=== PATIENT | male | born 1980 | race Caucasian/White ===

== ENCOUNTER 2020-11-06 17:29 | Inpatient (IN) | payer OTHER ==
[~2020-11-06] VITALS: Ht 172.7 cm; Wt 80.7 kg
[~2020-11-06 17:29] MED LIST: ATARAX,VISTARIL50 MG PO; CARBIDOPA/LEVOD1 TA1 PO; DEPAKOTE500 MG PO; DICYCLOMINE HCL20 MG PO; HYDR12.5C PO; LOPERAMIDE HCL2 MG PO; METHOCARBAMOL750 M1 PO; NICOTINE PATCH1 EAC2 TD; ONDANSETRON HYDR4 M1 PO; ROBAXIN750 MG PO; ROPINIROLE HYD0.5 MG PO; SEROQUEL300 MG PO; SINEMET 25-100M1 TAB PO; VISTARIL50 MG PO
[2020-11-06 17:30] VITALS: BP 140/99
[2020-11-06] MEDS ORDERED: 'CLONIDINE0.1 MG PO (18:39)
[2020-11-06] MEDS ORDERED: AMLODIPINE BESYL5 MG PO (18:40)
[2020-11-06] MEDS ORDERED: LAMOTRIGINE25 M1 PO (18:41)
[2020-11-06] MEDS ORDERED: HYDROCHLOROTHIA25 M1 PO (18:41)
[2020-11-06] MEDS ORDERED: LOSARTAN POTAS100 M1 PO (18:42)
[2020-11-06 20:00] VITALS: BP 154/77
[2020-11-06 20:00] LABS: BILIRUBIN Negative (Negative); BLOOD Negative (Negative); CLARITY Clear (Clear); COLOR Yellow (Yellow); GLUCOSE Negative (Negative); KETONE Negative (Negative); LEUKO ESTERASE Negative (Negative); NITRITE Negative (Negative); SPECIFIC GRAVITY 1.025 (1.001-1.030); UROBILINOGEN 0.2 E.U./dl (0.0-1.0)
[2020-11-06 20:07] LABS: URINE AMPHETAMINES > 1000 (1000ng/ml); URINE BARBITURATES < 200 (200ng/ml); URINE BENZODIAZEPINES < 200 (200ng/ml); URINE CANNABINOIDS (THC) < 50 (50ng/ml); URINE COCAINE < 300 (300ng/ml); URINE METHADONE < 300 (300ng/ml); URINE OPIATES < 300 (300ng/ml); URINE PHENCYCLIDINE < 25 (25ng/ml)
[2020-11-06 20:12] LABS: BACTERIA TRACE; EPITHELIAL CELLS 0-2; RBC 0-2 rbc/hpf (0-2)
[2020-11-06 20:28] LABS: BASO % 0.5 % (0.0-1.0); EOS # 0.1 10*3/uL (0.0-0.4); EOS % 1.8 % (1.0-4.0); HEMATOCRIT 39.3 % (42.0-52.0); LYMPH # 2.3 10*3/uL (1.3-4.4); LYMPH % 28.8 % (27.0-41.0); MEAN CELL VOLUME 85.6 fl (80.0-94.0); MEAN CORPUSCULAR HGB 30.7 pg (27.0-31.0); MEAN CORPUSCULAR HGB CONC 35.9 g/dl (33.0-37.0); MEAN PLATELET VOLUME 9.8 fl (9.6-12.3); MONO # 0.6 10*3/uL (0.1-1.0); MONO % 7.2 % (3.0-9.0); NEUT # 4.9 10*3/uL (2.3-7.9); NEUT % 61.6 % (47.0-73.0); PLATELET COUNT AUTOMATED 339 10*3/uL (130-400); RED BLOOD COUNT 4.59 10*6/uL (4.50-5.90); RED CELL DISTRI WIDTH 11.3 % (0-14.5)
[2020-11-06 20:45] LABS: ALBUMIN 4.2 gm/dl (3.1-4.5); ALKALINE PHOSPHATASE 94 U/L (45-117); BUN 25 mg/dl (7-24); CHLORIDE 101 mmol/L (98-107); CREATININE 0.96 mg/dL (0.70-1.30); SGOT/AST 46 IU/L (3-35); SGPT/ALT 60 U/L (12-78); SODIUM 137 mmol/L (136-145); TOTAL PROTEIN 8.4 gm/dL (6.4-8.2)
[2020-11-06 20:48] LABS: ETHYL ALCOHOL < 3.0 mg/dl (<3)
[2020-11-07] VITALS: BP 129/66
[2020-11-07 08:00] VITALS: BP 110/76
[2020-11-07 12:00] VITALS: BP 134/72
[2020-11-07 16:00] VITALS: BP 115/57
[2020-11-07 20:00] VITALS: BP 141/48
[2020-11-08] VITALS: BP 120/56
[2020-11-08 08:00] VITALS: BP 116/72
[2020-11-08 12:00] VITALS: BP 114/86
[2020-11-08 16:00] VITALS: BP 120/59
[2020-11-08 20:00] VITALS: BP 129/65
[2020-11-09] VITALS: BP 126/65
[2020-11-09 08:00] VITALS: BP 136/69
[2020-11-09 12:00] VITALS: BP 149/80
[2020-11-09 16:00] VITALS: BP 150/78
[2020-11-09 17:30] VITALS: BP 150/81
[2020-11-09 20:00] VITALS: BP 133/73
[2020-11-10] VITALS: BP 135/86
[2020-11-10 08:00] VITALS: BP 143/74
[2020-11-10] MEDS ORDERED: ZOFRAN 4 MG ED2 TAB PO (08:56)
[2020-11-10] MEDS ORDERED: NATURE'S BLEND F1 MG PO (08:56)
[2020-11-10] MEDS ORDERED: DICYCLOMINE HCL20 MG PO (08:56)
[2020-11-10] MEDS ORDERED: VITAMIN B-1100 M1 PO (08:56)
[2020-11-10] MEDS ORDERED: 'CLONIDINE0.1 MG PO (09:02)
[2020-11-10] MEDS ORDERED: AMLODIPINE BESYL5 MG PO (09:03)
[2020-11-10] MEDS ORDERED: LOSARTAN POTAS100 M1 PO (09:03)
[2020-11-10] MEDS ORDERED: LAMOTRIGINE25 M1 PO (09:05)
[2020-11-10] MEDS ORDERED: LAMICTAL25 MG PO (09:06)
[2020-11-10] MEDS ORDERED: HYDROCHLOROTHIA25 M1 PO (09:07)
== END 2020-11-10 10:26 | disposition home or self-care (01) | DRG 773 ==
LOC: 4E 17:29
PROVIDERS: Internal Medicine; ADMIT Internal Medicine; ATTEND Internal Medicine
DX: F11.23 Opioid dependence with withdrawal (principal); F15.10 Other stimulant abuse, uncomplicated; M79.10 Myalgia, unspecified site; F31.9 Bipolar disorder, unspecified; B19.20 Unspecified viral hepatitis C without hepatic coma; I10 Essential (primary) hypertension; R09.81 Nasal congestion; F41.9 Anxiety disorder, unspecified; F17.229 Nicotine dependence, chewing tobacco, with unspecified nicotine-induced disorders; Z71.6 Tobacco abuse counseling; Z79.899 Other long term (current) drug therapy

== ENCOUNTER 2021-03-16 13:24 | Inpatient (IN) | payer OTHER ==
[~2021-03-16 13:24] MED LIST changes: +'CLONIDINE0.1 MG PO; +AMLODIPINE BESYL5 MG PO; +HYDROCHLOROTHIA25 M1 PO; +LAMICTAL25 MG PO; +LAMOTRIGINE25 M1 PO; +LOSARTAN POTAS100 M1 PO; +NATURE'S BLEND F1 MG PO; +VITAMIN B-1100 M1 PO; +ZOFRAN 4 MG ED2 TAB PO
[2021-03-16 13:30] VITALS: BP 145/94
[2021-03-16 14:45] LABS: BILIRUBIN Negative (Negative); BLOOD Negative (Negative); CLARITY Clear (Clear); COLOR Yellow (Yellow); GLUCOSE Negative (Negative); KETONE Negative (Negative); LEUKO ESTERASE Negative (Negative); NITRITE Negative (Negative); PH 6.5 (4.5-8.0); SPECIFIC GRAVITY 1.025 (1.001-1.030)
[2021-03-16 14:53] LABS: URINE AMPHETAMINES > 1000 (1000ng/ml); URINE BARBITURATES < 200 (200ng/ml); URINE BENZODIAZEPINES < 200 (200ng/ml); URINE CANNABINOIDS (THC) < 50 (50ng/ml); URINE COCAINE < 300 (300ng/ml); URINE METHADONE < 300 (300ng/ml); URINE OPIATES < 300 (300ng/ml); URINE PHENCYCLIDINE < 25 (25ng/ml)
[2021-03-16 15:01] LABS: BACTERIA TRACE; EPITHELIAL CELLS 0-2; RBC 0-2 rbc/hpf (0-2); URIC ACID CRYSTALS 1+
[2021-03-16] MEDS ORDERED: BUPRENORPHINE-1 EAC2 SL (17:48)
[2021-03-16 20:00] VITALS: BP 149/95
[2021-03-17] VITALS: BP 136/90
[2021-03-17 04:00] VITALS: BP 134/82
[2021-03-17 08:00] VITALS: BP 131/76
[2021-03-17 12:00] VITALS: BP 141/78
[2021-03-17 16:00] VITALS: BP 128/68
[2021-03-17 20:00] VITALS: BP 146/91
[2021-03-18] VITALS: BP 149/89
[2021-03-18 08:00] VITALS: BP 136/84
[2021-03-18 12:00] VITALS: BP 152/90
[2021-03-18 16:00] VITALS: BP 155/60
[2021-03-19 03:00] VITALS: BP 147/74
[2021-03-19 08:00] VITALS: BP 130/83
[2021-03-19 12:00] VITALS: BP 120/67
== END 2021-03-19 14:37 | disposition home or self-care (01) | DRG 776 ==
LOC: 4E 13:24
PROVIDERS: Social Worker Clinical; ADMIT Family Medicine; ATTEND Family Medicine
DX: F15.23 Other stimulant dependence with withdrawal (principal); F15.20 Other stimulant dependence, uncomplicated; F31.9 Bipolar disorder, unspecified; F41.9 Anxiety disorder, unspecified; I10 Essential (primary) hypertension; B18.2 Chronic viral hepatitis C; R80.9 Proteinuria, unspecified; Z87.898 Personal history of other specified conditions; Z78.9 Other specified health status

== ENCOUNTER 2021-12-09 09:50 | Inpatient (IN) | payer OTHER ==
[~2021-12-09] VITALS: Ht 177.8 cm; Wt 74.9 kg
[~2021-12-09 09:50] MED LIST changes: +BUPRENORPHINE-1 EAC2 SL
[2021-12-09 09:59] VITALS: BP 165/100
[2021-12-09 10:56] LABS: BASO % 0.5 % (0.0-1.0); EOS # 0.1 10*3/uL (0.0-0.4); EOS % 1.1 % (1.0-4.0); HEMATOCRIT 35.8 % (42.0-52.0); LYMPH # 1.9 10*3/uL (1.3-4.4); MEAN CELL VOLUME 82.9 fl (80.0-94.0); MEAN CORPUSCULAR HGB 29.9 pg (27.0-31.0); MEAN PLATELET VOLUME 9.1 fl (9.6-12.3); MONO # 0.8 10*3/uL (0.1-1.0); MONO % 12.5 % (3.0-9.0); NEUT # 3.7 10*3/uL (2.3-7.9); NEUT % 56.7 % (47.0-73.0); PLATELET COUNT AUTOMATED 288 10*3/uL (130-400); RED BLOOD COUNT 4.32 10*6/uL (4.50-5.90); RED CELL DISTRI WIDTH 12.6 % (0-14.5); WHITE BLOOD COUNT 6.6 10*3/uL (4.8-10.8)
[2021-12-09 11:04] VITALS: BP 160/96
[2021-12-09 11:18] LABS: ALKALINE PHOSPHATASE 88 U/L (45-117); BUN 21 mg/dl (7-24); CHLORIDE 101 mmol/L (98-107); CREATININE 0.81 mg/dL (0.70-1.30); POTASSIUM 3.7 mmol/L (3.5-5.1); SGOT/AST 48 IU/L (3-35); SGPT/ALT 63 U/L (12-78); SODIUM 135 mmol/L (136-145); TOTAL PROTEIN 8.5 gm/dL (6.4-8.2)
[2021-12-09 11:28] LABS: BILIRUBIN Negative (Negative); BLOOD Negative (Negative); CLARITY Clear (Clear); COLOR Yellow (Yellow); GLUCOSE Negative (Negative); KETONE Trace (Negative); LEUKO ESTERASE Trace (Negative); NITRITE Negative (Negative); SPECIFIC GRAVITY 1.025 (1.001-1.030)
[2021-12-09 11:36] LABS: URINE AMPHETAMINES > 1000 (1000ng/ml); URINE BARBITURATES < 200 (200ng/ml); URINE BENZODIAZEPINES < 200 (200ng/ml); URINE CANNABINOIDS (THC) < 50 (50ng/ml); URINE COCAINE < 300 (300ng/ml); URINE METHADONE < 300 (300ng/ml); URINE OPIATES < 300 (300ng/ml)
[2021-12-09 11:42] LABS: BACTERIA TRACE; EPITHELIAL CELLS 0-2; RBC 0-2 rbc/hpf (0-2)
[2021-12-09 11:44] LABS: URINE PHENCYCLIDINE < 25 (25ng/ml)
[2021-12-09 13:54] VITALS: BP 145/90
[2021-12-09 16:00] VITALS: BP 145/90
[2021-12-09 20:00] VITALS: BP 134/80
[2021-12-10] VITALS: BP 152/88
[2021-12-10 08:00] VITALS: BP 115/90
== END 2021-12-10 11:42 | disposition home or self-care (01) | DRG 773 ==
LOC: ED 09:50 → EDHOLD 10:59 → 5E 10:59
PROVIDERS: Emergency Medicine; ADMIT Internal Medicine; ATTEND Internal Medicine
DX: F11.23 Opioid dependence with withdrawal (principal); F15.23 Other stimulant dependence with withdrawal; B19.20 Unspecified viral hepatitis C without hepatic coma; I10 Essential (primary) hypertension; F31.9 Bipolar disorder, unspecified; F15.20 Other stimulant dependence, uncomplicated; F41.9 Anxiety disorder, unspecified; E87.1 Hypo-osmolality and hyponatremia; R74.01 Elevation of levels of liver transaminase levels; E80.6 Other disorders of bilirubin metabolism; F17.210 Nicotine dependence, cigarettes, uncomplicated; Z79.899 Other long term (current) drug therapy

== ENCOUNTER 2023-08-27 22:32 | Emergency (ER) | payer OTHER ==
[~2023-08-27] VITALS: Ht 177.8 cm; Wt 79.4 kg
[2023-08-27 23:39] LABS: BASO % 0.2 % (0.0-1.0); EOS # 0.1 10*3/uL (0.0-0.4); EOS % 0.5 % (1.0-4.0); HEMATOCRIT 34.7 % (42.0-52.0); LYMPH # 1.3 10*3/uL (1.3-4.4); LYMPH % 7.8 % (27.0-41.0); MEAN CELL VOLUME 90.6 fl (80.0-94.0); MEAN CORPUSCULAR HGB CONC 33.1 g/dl (33.0-37.0); MEAN PLATELET VOLUME 9.1 fl (9.6-12.3); MONO # 1.2 10*3/uL (0.1-1.0); MONO % 6.9 % (3.0-9.0); NEUT # 14.1 10*3/uL (2.3-7.9); NEUT % 84.2 % (47.0-73.0); PLATELET COUNT AUTOMATED 431 10*3/uL (130-400); RED BLOOD COUNT 3.83 10*6/uL (4.50-5.90); RED CELL DISTRI WIDTH 11.6 % (0-14.5); WHITE BLOOD COUNT 16.7 10*3/uL (4.8-10.8)
[2023-08-27 23:54] LABS: ACT PARTIAL THROMBO TIME 30.2 SECONDS (20.0-32.1)
[2023-08-27 23:56] LABS: ALKALINE PHOSPHATASE 80 U/L (46-116); BUN 10 mg/dl (9-23); CHLORIDE 98 mmol/L (98-107); LIPASE 24 U/L (12-53); POTASSIUM 3.8 mmol/L (3.4-5.1); SGPT/ALT 18 U/L (5-49); TOTAL PROTEIN 7.1 gm/dL (6.0-8.0)
== END 2023-08-28 00:46 | disposition left against medical advice (07) ==
LOC: ED 22:32
PROVIDERS: Internal Medicine
DX: L02.413 Cutaneous abscess of right upper limb (principal); F17.210 Nicotine dependence, cigarettes, uncomplicated; Z53.29 Procedure and treatment not carried out because of patient's decision for other reasons